=== PATIENT | male | born 1995 | race Caucasian/White ===

== ENCOUNTER 2024-01-08 12:20 | Emergency (ER) | payer OTHER ==
[~2024-01-08] VITALS: Ht 170.2 cm; Wt 81.6 kg
[2024-01-08 13:08] VITALS: BP 143/91; TEMP 98.2; O2SAT 98
[2024-01-08] MEDS ORDERED: OXYM15MI4 NS (13:53)
[2024-01-08] MEDS ORDERED: PSEUDOEPHEDRINE HCL 30 MG TABLET ONE (13:57)
[2024-01-08] MEDS: PSEUDOEPHEDRINE HCL 30 MG TABLET PO ONE (14:05)
== END 2024-01-08 15:03 | disposition home or self-care (01) ==
LOC: ER 12:28
DX: J32.9 Chronic sinusitis, unspecified (principal)

== ENCOUNTER 2024-01-30 14:55 | Emergency (ER) | payer OTHER ==
[~2024-01-30] VITALS: Ht 175.3 cm; Wt 74.8 kg
[~2024-01-30 14:55] MED LIST: OXYM15MI4 NS
[2024-01-30 15:41] VITALS: BP 128/79; TEMP 98.2; O2SAT 98
[2024-01-30] MEDS ORDERED: PSEU-310 PO (15:55)
== END 2024-01-30 16:07 | disposition home or self-care (01) ==
LOC: ER 14:59
DX: J32.9 Chronic sinusitis, unspecified (principal)